=== PATIENT | female | born 2000 | race Caucasian/White ===

== ENCOUNTER 2020-10-28 16:27 | Emergency (ER) | payer MEDICAID ==
[~2020-10-28] VITALS: Ht 170.2 cm; Wt 54.4 kg
--- NOTE | 2020-10-28 17:34 | NUR ---
BIBS TO ER BED 10. AAOX4. NOT IN RESP DISTRESS. AMBULATORY. CAME IN FOR HAVING NO BM FOR THE 5-6 DAY. PT REPORTS THAT HE FEELS BLOATED. HE REPORTS THAT HE IS A HEROIN USER LAST USE 2.5 DAYS AGO. PT REPORTS TRYING OTC CONSTIPATION REMEDY WITHOUT RELIEF. WAS AT THE BEDSIDE ERYN BRAVO. ORDERS RECEIVED, NOTED AND CARRIED OUT. IV LINE ON RFA 18G, BLOOD DRAWN AND GIVEN TO LAB.
[2020-10-28 17:45] LABS: CALCIUM, SERUM 9.5 mg/dL (8.5-10.1); CREATININE 0.8 mg/dL (0.6-1.3); POTASSIUM 3.9 mmol/L (3.5-5.1)
[2020-10-28 17:52] LABS: BASOPHILS # (AUTO) 0.1 /CMM (0.0-0.2); BASOPHILS % (AUTO) 0.5 % (0.0-2.0); HEMATOCRIT 45 % (33-45); HEMOGLOBIN 14.9 g/dL (11.5-14.8); LYMPHOCYTES # (AUTO) 1.3 /CMM (0.8-4.8); LYMPHOCYTES % (AUTO) 12.4 % (20.0-44.0); MEAN CORPUSCULAR HGB CONC 33 g/dl (31.0-36.0); MEAN CORPUSCULAR VOLUME 86 fL (82-100); MONOCYTES # (AUTO) 0.6 /CMM (0.1-1.30); MONOCYTES % (AUTO) 6.4 % (2.0-12.0); NEUTROPHILS # (AUTO) 8.2 /CMM (1.8-8.9); NEUTROPHILS % (AUTO) 80.7 % (43.0-81.0); PLATELET COUNT (AUTO) 290 /CMM (150-450); RED BLOOD CELL COUNT(AUTO) 5.17 MIL/uL (4.0-5.2); WHITE BLOOD COUNT (AUTO) 10.1 K/uL (4.3-11.0)
[2020-10-28] MEDS ORDERED: HYDR-3976 GT (18:12)
[2020-10-28] MEDS ORDERED: DOCU-141 PO (18:36)
[2020-10-28] MEDS ORDERED: SENN-18 PO (18:36)
[2020-10-28] MEDS ORDERED: POLY17PO4 PO (18:36)
[2020-10-28] MEDS ORDERED: NALO4SPR NS (18:37)
--- NOTE | 2020-10-28 18:48 | NUR ---
Patient discharged to home in stable condition. Written and verbal after care instructions given. Patient verbalizes understanding of instruction.IV removed. Catheter intact and site benign. Pressure and 4x4 applied to site. No bleeding noted. Pt ambulatory with a steady gait
[2020-10-28 18:50] VITALS: BP 113/65
== END 2020-10-28 18:51 | disposition home or self-care (01) ==
LOC: ER 16:41
DX: K59.00 Constipation, unspecified (principal)
CPT/HCPCS: 36415; 80048-TC; 85025-TC

== ENCOUNTER 2025-02-02 09:48 | Emergency (ER) | payer MEDICAID, OTHER ==
[~2025-02-02] VITALS: Ht 170.2 cm; Wt 61.2 kg
[~2025-02-02 09:48] MED LIST: DOCU-141 PO; NALO4SPR NS; POLY17PO4 PO; SENN-18 PO
[2025-02-02] MEDS ORDERED: NALO4SPR BNOSTRILS (10:00)
[2025-02-02 10:21] VITALS: BP 115/73; TEMP 98.2; O2SAT 98
== END 2025-02-02 10:22 ==
LOC: EDSEX 09:48 → ER 09:50
DX: F11.10 Opioid abuse, uncomplicated (principal); R11.0 Nausea; Z79.899 Other long term (current) drug therapy; Z60.2 Problems related to living alone